=== PATIENT | female | born 1995 | race Caucasian/White ===

== ENCOUNTER → 2017-06-29 14:41 | Outpatient (CLI) | payer OTHER ==
[2015-01-13 14:47] VITALS: BMI 24.2
[~2017-06-29 14:41] MED LIST: BACTROBAN CREAM15 GM TOPICAL; CLEOCIN HCL300 MG PO; TYLENOL W/CODEI1 TAB PO
== END | disposition home or self-care (01) ==
LOC: D.LDO 14:41 → D.ER 14:41 → EDSTATUS 15:58
DX: O26.899 Other specified pregnancy related conditions, unspecified trimester (principal); Z3A.00 Weeks of gestation of pregnancy not specified; S81.012A Laceration without foreign body, left knee, initial encounter; W19.XXXA Unspecified fall, initial encounter; Y93.89 Activity, other specified; Y92.019 Unspecified place in single-family (private) house as the place of occurrence of the external cause

== ENCOUNTER → 2019-09-16 08:19 | Outpatient (CLI) | payer OTHER ==
[2015-01-13 14:47] VITALS: BMI 24.2
== END | disposition home or self-care (01) ==
LOC: D.US 08:00
PROVIDERS: ATTEND Registered Nurse Emergency
DX: N64.4 Mastodynia (principal)